=== PATIENT | male | born 1980 | race Caucasian/White ===

== ENCOUNTER 2017-03-24 14:12 | Emergency (ER) | payer OTHER ==
[~2017-03-24] VITALS: Ht 167.6 cm; Wt 100.0 kg
[2017-03-24] MEDS ORDERED: METFORMIN500 MG PO (15:05)
[2017-03-24] MEDS ORDERED: LEXAPRO10 MG PO (15:05)
[2017-03-24] MEDS ORDERED: BP MED (15:06)
[2017-03-24] MEDS ORDERED: JANUVIA50 MG PO (15:06)
[2017-03-24] MEDS ORDERED: AMOXICILLIN500 MG PO (17:04)
[2017-03-24 17:12] VITALS: BP 119/78
== END 2017-03-24 17:12 | disposition home or self-care (01) | DRG 605 ==
LOC: ED 14:12
DX: S00.93XA Contusion of unspecified part of head, initial encounter (principal); E11.9 Type 2 diabetes mellitus without complications; I10 Essential (primary) hypertension; F41.9 Anxiety disorder, unspecified; F32.9 Major depressive disorder, single episode, unspecified; W22.09XA Striking against other stationary object, initial encounter; Y93.75 Activity, martial arts; Y92.149 Unspecified place in prison as the place of occurrence of the external cause